=== PATIENT | male | born 1960 | race Caucasian/White ===

== ENCOUNTER 2017-06-02 11:48 | Emergency (ER) | payer OTHER ==
[~2017-06-02] VITALS: Ht 167.6 cm; Wt 83.5 kg
[2017-06-02 12:18] VITALS: Ht 167.6 cm; Wt 83.5 kg
[2017-06-02 17:30] VITALS: BP 145/93
== END 2017-06-02 19:04 | disposition home or self-care (01) ==
LOC: ED 11:48
DX: S62.666A Nondisplaced fracture of distal phalanx of right little finger, initial encounter for closed fracture (principal); S61.216A Laceration without foreign body of right little finger without damage to nail, initial encounter; X58.XXXA Exposure to other specified factors, initial encounter; Y93.89 Activity, other specified; Y92.89 Other specified places as the place of occurrence of the external cause; Y99.8 Other external cause status
CPT/HCPCS: J0696; J2001